=== PATIENT | male | born 1935 | race Caucasian/White ===

== ENCOUNTER 2019-11-28 09:35 | Emergency (ER) | payer MEDICARE, BC, SELFPAY ==
[2019-11-28 09:43] VITALS: BP 155/81; PULSE 80; RESP 18; TEMP 36.6; O2SAT 97; BMI 30.7
--- NOTE | 2019-11-28 09:54 | XR_ITS ---
PROCEDURE: XR HIP RT 2-3V W/PELVIS CLINICAL INDICATION: fall, pain Posttraumatic pain COMPARISON: No exams were available for comparison FINDINGS: No acute fracture or dislocation. Minimal osteoarthritic changes. IMPRESSION: No acute findings. Dictated by: Flo Herrera MD 11/28/2019 11:37 Electronically signed by Flo Herrera MD in [facility] 11/28/2019 11:37
--- NOTE | 2019-11-28 09:54 | CT_ITS ---
PROCEDURE: CT LUMBAR SPINE WO CON CLINICAL HISTORY: fall Low back pain following injury COMPARISON: No exams were available for comparison TECHNIQUE: Axial images obtained with sagittal and coronal reformats. All CT scans at the facility use one or more dose reduction, viz: automated exposure control, ma/kV adjustment per patient size (including targeted exams where dose is matched to indication, i.e. head), or iterative reconstruction technique. FINDINGS: There is generalized osteopenia. There is normal alignment. There is mild wedging of L2 centrally and anteriorly with loss of height anteriorly of approximately 30 percent. This may be old. No prevertebral soft tissue swelling is evident. No retropulsion. Mild degenerative disc disease noted at L1-L2 and L2-L3. Minimal bulging disc at L3-L4. 3 mm anterolisthesis of L4 on L5 with bulging disc along with facet and ligamentum hypertrophy with canal stenosis, bilateral lateral recess narrowing, and bilateral foraminal narrowing. There is some heterotopic ossification posterior to the facets at this level. Bulging disc is present at L5-S1 with facet hypertrophic change. No definite acute fracture. 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 Please see above for detailed description at each level. Wedge compression changes of L2 which appear chronic. This could be confirmed with MRI if clinically warranted. No definite acute fracture or dislocation. Dictated by: Flo Herrera MD 11/28/2019 11:02 Electronically signed by Flo Herrera MD in [facility] 11/28/2019 11:02
--- NOTE | 2019-11-28 09:55 | PC.NURSE ---
notified rad of orders on pt
--- NOTE | 2019-11-28 10:05 | PC.NURSE ---
pt sitting in wheel chair waiting on rad to come get them
[2019-11-28 10:07] VITALS: BP 137/67; PULSE 76; RESP 18; O2SAT 97
--- NOTE | 2019-11-28 10:28 | PC.NURSE ---
pt to xray
--- NOTE | 2019-11-28 10:32 | PC.NURSE ---
pt gone to rad
--- NOTE | 2019-11-28 10:54 | PC.NURSE ---
pt back from rad
[2019-11-28 10:58] VITALS: BP 192/78; PULSE 66; RESP 18; O2SAT 98
--- NOTE | 2019-11-28 11:01 | CT_ITS ---
PROCEDURE: CT HIP RT WO CON CLINICAL HISTORY: fall Right hip pain following injury COMPARISON: XR HIP RT 2-3V W/PELVIS from 11/28/2019 TECHNIQUE: Axial images obtained with sagittal and coronal reformats. All CT scans at the facility use one or more dose reduction, viz: automated exposure control, ma/kV adjustment per patient size (including targeted exams where dose is matched to indication, i.e. head), or iterative reconstruction technique. FINDINGS: No fracture or dislocation. There are minimal osteoarthritic changes. No hematoma apparent. There is some minimal soft tissue calcification at the ischial tuberosity and along the proximal aspect of the greater trochanter anteriorly. No lytic or blastic change. IMPRESSION: No acute fracture. Mild degenerative changes Dictated by: Flo Herrera MD 11/28/2019 11:32 Electronically signed by Flo Herrera MD in [facility] 11/28/2019 11:32
--- NOTE | 2019-11-28 11:30 | PC.NURSE ---
pt back from rad
[2019-11-28 11:35] VITALS: BP 140/64; PULSE 69; RESP 18; O2SAT 98
--- NOTE | 2019-11-28 12:07 | HMH.EDGENADL ---
ED Disposition Clinical Impression: Multiple contusions Disposition: Home, Self-Care Condition on Discharge: Good Instructions: DI for Acute Pain -- Adult Referrals: Staci Gonsales [Primary Care Provider] - - Critical Care Critical Care Time: No Attestation: On 11/28/19, the high probability of a clinically significant, sudden or life threatening deterioration of the following system(s) required my full and direct attention, intervention and personal management. The time I documented below is in addition to time spent performing reported procedures but includes the following listed in this critical care notation. Medical Decision Making - Medical Records Medical records reviewed: Yes: I reviewed the patient's medical records. - Albert Inquiry Pt receiving controlled substance: No Vital Signs: 11/28/19 09:43 11/28/19 10:07 11/28/19 10:58 Temperature 97.9 F Temperature Source Oral Pulse Rate [Right Radial] 80 76 66 Respiratory Rate 18 18 18 Blood Pressure [Right Arm] 155/81 H 137/67 192/78 H Blood Pressure Mean [Right Arm] 105 90 116 Blood Pressure Source [Right Arm] Automatic Cuff Automatic Cuff Automatic Cuff Blood Pressure Position [Right Arm] Sitting Supine Supine 02 Sat by Pulse Oximetry 97 97 98 Oxygen Delivery Method Room Air Nasal Cannula Room Air Oxygen Flow Rate (LPM) 3 11/28/19 11:35 Temperature Temperature Source Pulse Rate [Right Radial] 69 Respiratory Rate 18 Blood Pressure [Right Arm] 140/64 Blood Pressure Mean [Right Arm] 89 Blood Pressure Source [Right Arm] Manual Cuff/ Doppler Blood Pressure Position [Right Arm] Supine 02 Sat by Pulse Oximetry 98 Oxygen Delivery Method Room Air Oxygen Flow Rate (LPM) - Lab Data Lab results reviewed: Yes: I reviewed the patient's lab results. Orders (Tests/Meds): ED MEDICATIONS Discontinued Medications Generic Name Dose Route Start Last Admin Trade Name Freq PRN Reason Stop Dose Admin Ketorolac Tromethamine 60 mg 11/28/19 11:00 11/28/19 11:03 Toradol 60mg/2ml Vial IM 11/28/19 11:01 60 mg ONCE ONE Administration - Radiology Data #1 Image(s): Hip Preliminary Findings: Normal/NAD - CT Data CT Scan: L-Spine Time Received: 11:20 Preliminary Findings: Normal/NAD General Adult HPI - General Chief complaint: PAIN Stated complaint: AO [id number] Fell off bed, r hip pain Time Seen by Provider: 11/28/19 11:00 Mode of Arrival: Wheelchair Source of Information: Patient Limitations: No Limitations Description of Symptoms (Recalled from ER Triage Doc. by RN): Pt c/o R hip pain and R lower back pain. Pt reports a fall on November 22. Pt reports he was trying to get out of bed when he fell. Pt reports pain was getting better until this morning, states having difficulty walking today. - History of Present Illness HPI narrative: 84-year-old gentleman presents the emergency department after falling out of bed 2 days ago. He states that he was laying in bed and just rolled over and ran out of bed and landed on the floor on his right side. He is complaining about right hip pain and lower back pain. He states right now the pain is a 5 out of 10 and classifies pain is sharp. He states that alleviating factors include rest and exacerbating factors include movement. Patient denies any bowel or bladder incontinence. Patient denies any recent fever shakes or chills. HPIPatient denies any recent cough or shortness of breath, patient denies any sore throat or headache, patient denies any loss of taste or smell, patient denies any malaise or fatigue, patient denies any abdominal pain nausea vomiting or diarrhea. - Related Data Home Medications Medication Instructions Recorded Confirmed lisinopril 10 mg tablet 10 mg PO DAILY 02/18/19 11/28/19 metformin 500 mg tablet 1,000 mg PO DAILY 02/18/19 11/28/19 Insulin NPH Hum/Reg Insulin Hm 20 units SQ HS 11/28/19 11/28/19 [Novolin 70-30 100 Unit/ml Vial] I
[2019-11-28 12:23] VITALS: BP 133/70; PULSE 68; RESP 18; TEMP 36.6; O2SAT 98
== END 2019-11-28 12:24 | disposition home or self-care (01) ==
PROVIDERS: Emergency Provider Family Medicine; PCP Family Medicine
DX: T07.XXXA Unspecified multiple injuries, initial encounter (principal); M25.551 Pain in right hip; M54.5 Low back pain; W06.XXXA Fall from bed, initial encounter; Y92.013 Bedroom of single-family (private) house as the place of occurrence of the external cause; I10 Essential (primary) hypertension; E11.9 Type 2 diabetes mellitus without complications; Z79.84 Long term (current) use of oral hypoglycemic drugs; Z79.4 Long term (current) use of insulin; Z79.899 Other long term (current) drug therapy
CPT/HCPCS: 72131; 73502; 73700; 96372; 99283

== ENCOUNTER 2023-07-29 13:14 | Outpatient (CLI) | payer MEDICARE, BC, SELFPAY ==
[2023-07-29 13:22] LABS: Basophils % 0.6 % (0.1-2.0); Eosinophils # 0.1 K/mm3 (0.0-0.4); Eosinophils % 0.9 % (0.1-12.0); Hematocrit 42.1 % (42.0-52.0); Hemoglobin 13.3 g/dL (14.1-18.0); Lymphocytes # 1.3 K/mm3 (0.7-4.5); Lymphocytes % 16.8 % (10-50); Mean Corpuscular HGB Conc 31.5 g/dL (31.8-35.4); Mean Corpuscular Hemoglobin 31.3 pg (27.0-31.2); Mean Corpuscular Volume 99.2 fl (80-94); Mean Platelet Volume 10.9 fl (7.4-10.4); Monocytes # 0.4 K/mm3 (0.1-1.0); Monocytes % 5.8 % (1.7-9.3); Neutrophils # 5.7 K/mm3 (1.8-7.8); Platelet Count 208 K/mm3 (142-424); Red Blood Count 4.24 M/mm3 (4.60-6.20); Red Cell Distribution Width 13.1 % (11.5-17.5); White Blood Count 7.5 K/mm3 (4.8-10.8)
[2023-07-29 13:31] LABS: Alanine Aminotransferase 15 U/L (12-78); Albumin Level 4.3 g/dl (3.5-5.0); Albumin/Globulin Ratio 1.9 (1.1-1.8); Alkaline Phosphatase 59 U/L (38-126); Anion Gap 13.5 mEq/L (5-15); Aspartate Amino Transferase 21 U/L (17-59); Bilirubin,Total 0.6 mg/dl (0.2-1.3); Blood Urea Nitrogen 23 mg/dl (9-20); Calcium 11.2 mg/dl (8.4-10.2); Carbon Dioxide 26 mmol/L (22.0-30.0); Chloride 106 mmol/L (98-107); Chol/HDL Ratio 4.5 (1-3.5); Cholesterol 148 mg/dl (140-200); Estimated Glomerular Filt Rate 52 ml/min (>60); GFR (African American) 63 ML/MIN (>60); Globulin 2.3 g/dL (1.3-3.2); Glucose 142 mg/dl (74-100); HDL Cholesterol 33 mg/dl (40-60); Potassium 5.5 mmoL/L (3.5-5.1); Sodium 140 mmol/L (136-145); Total Protein,Serum 6.6 g/dl (6.3-8.2); Triglycerides 113 mg/dl (30-150); VLDL Cholesterol 23 mg/dL (0-40)
[2023-07-29 13:43] LABS: Direct LDL Cholesterol 85.38 mg/dL (100-129)
[2023-07-29 13:46] LABS: Free T4 (Free Thyroxine) 0.92 ng/dl (0.78-2.19)
[2023-07-29 14:03] LABS: Prostate Specific Ag Screen 0.8 ng/ml (0.0-4.0); Thyroid Stimulating Hormone 3.07 uIU/mL (0.465-4.68)
[2023-07-29 14:22] LABS: Vitamin B12 272 pg/mL (239-931)
[2023-07-29 14:55] LABS: Hemoglobin A1C 8.4 % (4.0-6.0)
[2023-07-29 16:16] LABS: 25-OH Vitamin D, Total 41.6 ng/mL (30-100)
== END 2023-07-29 23:59 ==
LOC: LAB.DROPOF 13:14
PROVIDERS: PCP Nurse Practitioner Family; Visit Provider Nurse Practitioner Family
DX: R53.83 Other fatigue (principal); I10 Essential (primary) hypertension; E55.9 Vitamin D deficiency, unspecified; N40.0 Benign prostatic hyperplasia without lower urinary tract symptoms; Z12.5 Encounter for screening for malignant neoplasm of prostate; E11.9 Type 2 diabetes mellitus without complications; Z79.4 Long term (current) use of insulin; Z79.899 Other long term (current) drug therapy
CPT/HCPCS: 80053; 80061; 82306; 82607; 83036; 84439; 84443; 85025; G0103

== ENCOUNTER 2023-07-30 21:38 | Outpatient (CLI) | payer MEDICARE, BC, SELFPAY ==
[2023-07-30 21:46] LABS: Microscopic, Urine URINE MICROSCOPIC (MICROSCOPIC)
[2023-07-30 21:54] LABS: Appearance,Urine CLEAR (Clear); Bilirubin,Urine Negative (Negative); Blood, Urine Negative (Negative); Color,Urine YELLOW (Yellow); Glucose,Urine (UA) Negative (Negative); Ketones,Urine Negative (Negative); Leukocyte Esterase,Urine Negative (Negative); Nitrate,Urine Negative (Negative); Protein,Urine Negative (Negative); Urobilinogen,Urine 0.2 EU/dl (0.2)
== END 2023-07-30 23:59 ==
PROVIDERS: PCP Nurse Practitioner Family; Visit Provider Nurse Practitioner Family
DX: N40.0 Benign prostatic hyperplasia without lower urinary tract symptoms (principal); I10 Essential (primary) hypertension; B96.89 Other specified bacterial agents as the cause of diseases classified elsewhere; Z79.899 Other long term (current) drug therapy
CPT/HCPCS: 81001; 87086

== ENCOUNTER 2023-08-19 11:40 | Outpatient (POV) | payer MEDICARE, BC, SELFPAY | END 2023-08-19 23:59 | disposition home or self-care (01) | LOC: SC 11:40 | PROVIDERS: PCP Nurse Practitioner Family; Visit Provider Dermatology | DX: Z00.00 Encounter for general adult medical examination without abnormal findings (principal) ==

== ENCOUNTER 2023-10-30 18:00 | Outpatient (CLI) | payer MEDICARE, BC, SELFPAY ==
[2023-10-30 12:51] LABS: Microscopic, Urine URINE MICROSCOPIC (MICROSCOPIC)
[2023-10-30 13:55] LABS: Anion Gap 17.1 mEq/L (5-15); Blood Urea Nitrogen 26 mg/dl (9-20); Calcium 10.6 mg/dl (8.4-10.2); Carbon Dioxide 25 mmol/L (22.0-30.0); Chloride 106 mmol/L (98-107); Estimated Glomerular Filt Rate 44 ml/min (>60); GFR (African American) 54 ML/MIN (>60); Glucose 84 mg/dl (74-100); Potassium 5.1 mmoL/L (3.5-5.1); Sodium 143 mmol/L (136-145)
[2023-10-30 14:37] LABS: Appearance,Urine CLEAR (Clear); Bilirubin,Urine Negative (Negative); Blood, Urine Negative (Negative); Color,Urine YELLOW (Yellow); Glucose,Urine (UA) Negative (Negative); Ketones,Urine Negative (Negative); Leukocyte Esterase,Urine Negative (Negative); Nitrate,Urine Negative (Negative); Protein,Urine Negative (Negative); Urobilinogen,Urine 0.2 EU/dl (0.2)
[2023-10-30 16:16] LABS: Bacteria,Urine Trace /lpf; Squamous Epithelial Cell,Urine Occasional #/hpf (0-5); WBC,Urine Occasional #/hpf (0-3)
== END 2023-10-30 23:59 | disposition home or self-care (01) ==
LOC: LAB.DROPOF 10-31 07:25
PROVIDERS: PCP Nurse Practitioner Family; Visit Provider Nurse Practitioner Family
DX: E11.42 Type 2 diabetes mellitus with diabetic polyneuropathy (principal); Z79.4 Long term (current) use of insulin; Z79.84 Long term (current) use of oral hypoglycemic drugs; N40.0 Benign prostatic hyperplasia without lower urinary tract symptoms; R39.9 Unspecified symptoms and signs involving the genitourinary system
CPT/HCPCS: 80048; 81001; 83036; 87086

== ENCOUNTER 2024-01-29 09:49 | Outpatient (CLI) | payer MEDICARE, BC, SELFPAY ==
[2024-01-29 12:50] LABS: Hemoglobin A1C 7.3 % (4.0-6.0)
[2024-01-29 13:01] LABS: Anion Gap 8.9 mEq/L (5-15); Blood Urea Nitrogen 26 mg/dl (9-20); Calcium 10.3 mg/dl (8.4-10.2); Carbon Dioxide 27 mmol/L (22.0-30.0); Chloride 107 mmol/L (98-107); Estimated Glomerular Filt Rate 48 ml/min (>60); GFR (African American) 58 ML/MIN (>60); Glucose 90 mg/dl (74-100); Potassium 4.9 mmoL/L (3.5-5.1); Sodium 138 mmol/L (136-145)
[2024-01-29 17:17] LABS: Microscopic, Urine URINE MICROSCOPIC (MICROSCOPIC)
[2024-01-29 18:12] LABS: Creatinine,Urine Random 44 mg/dL (Not Estab.)
[2024-01-29 18:16] LABS: Microalbumin < 6.000 mg/L (0-16.7)
[2024-01-29 18:28] LABS: Appearance,Urine CLEAR (Clear); Bilirubin,Urine Negative (Negative); Blood, Urine Negative (Negative); Color,Urine YELLOW (Yellow); Glucose,Urine (UA) Negative (Negative); Ketones,Urine Negative (Negative); Leukocyte Esterase,Urine Negative (Negative); Nitrate,Urine Negative (Negative); Protein,Urine Negative (Negative); Specific Gravity, Urine <= 1.005 (1.005-1.030); Urobilinogen,Urine 0.2 EU/dl (0.2)
[2024-01-29 19:00] LABS: Bacteria,Urine Trace /lpf
== END 2024-01-29 23:59 | disposition home or self-care (01) ==
LOC: LAB.DROPOF 01-30 09:49
PROVIDERS: PCP Nurse Practitioner Family; Visit Provider Nurse Practitioner Family
DX: E11.42 Type 2 diabetes mellitus with diabetic polyneuropathy; Z79.4 Long term (current) use of insulin; I10 Essential (primary) hypertension; R39.9 Unspecified symptoms and signs involving the genitourinary system; N40.0 Benign prostatic hyperplasia without lower urinary tract symptoms
CPT/HCPCS: 36415; 80048; 81001; 82043; 82570; 83036; 84156; 87086; 87186

== ENCOUNTER 2024-04-29 12:59 | Outpatient (CLI) | payer MEDICARE, BC, SELFPAY ==
[2024-04-29 12:34] LABS: Microscopic, Urine URINE MICROSCOPIC (MICROSCOPIC)
[2024-04-29 13:19] LABS: Basophils # 0.1 K/mm3 (0-0.2); Basophils % 0.7 % (0.1-2.0); Eosinophils # 0.1 K/mm3 (0.0-0.4); Eosinophils % 1.5 % (0.1-12.0); Hematocrit 40.3 % (42.0-52.0); Lymphocytes # 1.4 K/mm3 (0.7-4.5); Lymphocytes % 17.9 % (10-50); Mean Corpuscular HGB Conc 32.4 g/dL (31.8-35.4); Mean Corpuscular Hemoglobin 31.7 pg (27.0-31.2); Mean Corpuscular Volume 97.9 fl (80-94); Mean Platelet Volume 11.2 fl (7.4-10.4); Monocytes # 0.5 K/mm3 (0.1-1.0); Monocytes % 6.2 % (1.7-9.3); Neutrophils # 5.8 K/mm3 (1.8-7.8); Neutrophils % 73.7 % (37.0-80.0); Platelet Count 191 K/mm3 (142-424); Red Blood Count 4.12 M/mm3 (4.60-6.20); White Blood Count 7.8 K/mm3 (4.8-10.8)
[2024-04-29 13:36] LABS: Anion Gap 14.9 mEq/L (5-15); Blood Urea Nitrogen 22 mg/dl (9-20); Calcium 10.2 mg/dl (8.4-10.2); Carbon Dioxide 23 mmol/L (22.0-30.0); Chloride 108 mmol/L (98-107); Chol/HDL Ratio 4.1 (1-3.5); Cholesterol 132 mg/dl (140-200); Estimated Glomerular Filt Rate 52 ml/min (>60); GFR (African American) 63 ML/MIN (>60); Glucose 105 mg/dl (74-100); HDL Cholesterol 32 mg/dl (40-60); Magnesium 1.5 mg/dl (1.6-2.3); Phosphorous 3.2 mg/dl (2.5-4.5); Potassium 4.9 mmoL/L (3.5-5.1); Sodium 141 mmol/L (136-145); Triglycerides 186 mg/dl (30-150); VLDL Cholesterol 37 mg/dL (0-40)
[2024-04-29 13:46] LABS: Direct LDL Cholesterol 67.49 mg/dL (100-129)
[2024-04-29 14:21] LABS: Appearance,Urine CLEAR (Clear); Bilirubin,Urine Negative (Negative); Blood, Urine Negative (Negative); Color,Urine YELLOW (Yellow); Glucose,Urine (UA) Negative (Negative); Ketones,Urine Negative (Negative); Leukocyte Esterase,Urine Negative (Negative); Nitrate,Urine Negative (Negative); Protein,Urine Negative (Negative); Specific Gravity, Urine <= 1.005 (1.005-1.030); Urobilinogen,Urine 0.2 EU/dl (0.2)
[2024-04-29 14:24] LABS: Creatinine,Urine Random 39 mg/dL (Not Estab.)
[2024-04-29 14:27] LABS: Microalbumin < 6.000 mg/L (0-16.7)
[2024-04-29 14:41] LABS: Vitamin B12 228 pg/mL (239-931)
[2024-04-29 14:47] LABS: Folate 9.32 ng/mL
[2024-04-29 14:55] LABS: Iron 107 ug/dL (49-181)
[2024-04-29 15:05] LABS: Total Iron Binding Capacity 356 ug/dL (261-462)
[2024-04-29 15:31] LABS: Ferritin 38.5 ng/ml (17.9-464)
[2024-04-29 16:08] LABS: Bacteria,Urine Trace /lpf
[2024-04-29 18:24] LABS: Hemoglobin A1C 7.3 % (4.0-6.0)
== END 2024-04-29 23:59 | disposition home or self-care (01) ==
LOC: LAB.DROPOF 12:59
PROVIDERS: PCP Nurse Practitioner Family; Visit Provider Nurse Practitioner Family
DX: E11.42 Type 2 diabetes mellitus with diabetic polyneuropathy (principal); Z79.4 Long term (current) use of insulin; G57.93 Unspecified mononeuropathy of bilateral lower limbs; I10 Essential (primary) hypertension; N39.0 Urinary tract infection, site not specified; B95.2 Enterococcus as the cause of diseases classified elsewhere
CPT/HCPCS: 80048; 80061; 81001; 82043; 82570; 82607; 82728; 82746; 83036; 83540; 83550; 83735; 84100; 84156; 85025; 87086; 87088; 87186

== ENCOUNTER 2024-08-26 09:16 | Outpatient (CLI) | payer MEDICARE, BC, SELFPAY ==
[2024-08-26 13:05] LABS: Microscopic, Urine URINE MICROSCOPIC (MICROSCOPIC)
[2024-08-26 13:32] LABS: Basophils % 0.5 % (0.1-2.0); Eosinophils # 0.1 K/mm3 (0.0-0.4); Eosinophils % 1.3 % (0.1-12.0); Hematocrit 41.7 % (42.0-52.0); Hemoglobin 13.6 g/dL (14.1-18.0); Lymphocytes % 16.2 % (10-50); Mean Corpuscular HGB Conc 32.6 g/dL (31.8-35.4); Mean Corpuscular Hemoglobin 30.2 pg (27.0-31.2); Mean Corpuscular Volume 92.5 fl (80-94); Mean Platelet Volume 12.5 fl (7.4-10.4); Monocytes # 0.7 K/mm3 (0.1-1.0); Monocytes % 11.9 % (1.7-9.3); Neutrophils # 4.2 K/mm3 (1.8-7.8); Neutrophils % 69.8 % (37.0-80.0); Platelet Count 251 K/mm3 (142-424); Red Blood Count 4.51 M/mm3 (4.60-6.20); Red Cell Distribution Width 12.2 % (11.5-17.5)
[2024-08-26 13:39] LABS: Appearance,Urine CLEAR (Clear); Bilirubin,Urine Negative (Negative); Blood, Urine Negative (Negative); Color,Urine YELLOW (Yellow); Creatinine,Urine Random 57 mg/dL (Not Estab.); Glucose,Urine (UA) 1+ (Negative); Ketones,Urine Negative (Negative); Leukocyte Esterase,Urine Negative (Negative); Nitrate,Urine Negative (Negative); PH,Urine 5.5 (5.0-8.5); Protein,Urine Negative (Negative); Specific Gravity, Urine 1.015 (1.005-1.030); Urobilinogen,Urine 0.2 EU/dl (0.2)
[2024-08-26 13:48] LABS: Anion Gap 16.1 mEq/L (5-15); Blood Urea Nitrogen 37 mg/dl (9-20); Calcium 10.6 mg/dl (8.4-10.2); Carbon Dioxide 23 mmol/L (22.0-30.0); Chloride 99 mmol/L (98-107); Estimated Glomerular Filt Rate 44 ml/min (>60); GFR (African American) 54 ML/MIN (>60); Glucose 223 mg/dl (74-100); Magnesium 1.6 mg/dl (1.6-2.3); Potassium 5.1 mmoL/L (3.5-5.1); Sodium 133 mmol/L (136-145)
[2024-08-26 13:49] LABS: Microalbumin < 6.000 mg/L (0-16.7)
[2024-08-26 14:00] LABS: Hemoglobin A1C 8.3 % (4.0-6.0)
[2024-08-26 14:22] LABS: Bacteria,Urine Trace /lpf; Prostate Specific Ag Screen 0.7 ng/ml (0.0-4.0); Squamous Epithelial Cell,Urine Occasional #/hpf (0-5)
[2024-08-26 14:39] LABS: Vitamin B12 1000 pg/mL (239-931)
== END 2024-08-26 23:59 | disposition home or self-care (01) ==
LOC: LAB.DROPOF 08-27 10:14
PROVIDERS: PCP Nurse Practitioner Family; Visit Provider Nurse Practitioner Family
DX: E11.21 Type 2 diabetes mellitus with diabetic nephropathy (principal); Z79.4 Long term (current) use of insulin; Z12.5 Encounter for screening for malignant neoplasm of prostate; N40.0 Benign prostatic hyperplasia without lower urinary tract symptoms; R39.9 Unspecified symptoms and signs involving the genitourinary system; E83.42 Hypomagnesemia; D51.9 Vitamin B12 deficiency anemia, unspecified; I10 Essential (primary) hypertension
CPT/HCPCS: 80048; 81001; 82043; 82570; 82607; 83036; 83735; 85025; 87086; G0103

== ENCOUNTER 2024-11-18 08:57 | Outpatient (CLI) | payer MEDICARE, BC, SELFPAY ==
[2024-11-18 15:27] LABS: Microscopic, Urine URINE MICROSCOPIC (MICROSCOPIC)
[2024-11-18 15:54] LABS: Appearance,Urine CLEAR (Clear); Bilirubin,Urine Negative (Negative); Blood, Urine Negative (Negative); Color,Urine YELLOW (Yellow); Glucose,Urine (UA) TRACE (Negative); Ketones,Urine Negative (Negative); Leukocyte Esterase,Urine Negative (Negative); Nitrate,Urine Negative (Negative); Protein,Urine Negative (Negative); Urobilinogen,Urine 0.2 EU/dl (0.2)
[2024-11-18 16:07] LABS: Anion Gap 14.2 mEq/L (5-15); Blood Urea Nitrogen 30 mg/dl (9-20); Calcium 11.1 mg/dl (8.4-10.2); Carbon Dioxide 25 mmol/L (22.0-30.0); Chloride 104 mmol/L (98-107); Chol/HDL Ratio 3.7 (1-3.5); Cholesterol 119 mg/dl (140-200); Estimated Glomerular Filt Rate 52 ml/min (>60); GFR (African American) 63 ML/MIN (>60); Glucose 104 mg/dl (74-100); HDL Cholesterol 32 mg/dl (40-60); Potassium 5.2 mmoL/L (3.5-5.1); Sodium 138 mmol/L (136-145); Triglycerides 143 mg/dl (30-150); VLDL Cholesterol 29 mg/dL (0-40)
[2024-11-18 16:16] LABS: Creatinine,Urine Random 41 mg/dL (Not Estab.); Microalbumin < 6.000 mg/L (0-16.7)
[2024-11-18 16:18] LABS: Direct LDL Cholesterol 52.21 mg/dL (100-129)
[2024-11-18 18:13] LABS: Intact Parathyroid Hormone 97.2 pg/mL (7.5-53.5)
--- OUTSIDE RECORDS SUMMARY | 2024-11-19 10:22 | XMS_ITS | Clinical Summary ---
Author Organization Healthcare Address [address] [place] [address] Care Team Providers Care Sign Erector Name Role Phone Staci Bruce MD Primary Care Provider [phone] Allergies No known active allergies Medications insulin NPH-insulin regular (INSULIN NPH ISOPHANE & REGULAR HUMAN INJ) (70-30) 100 UNIT/ML SC injection vialIndications:T ype 2 diabetes mellitus with diabetic polyneuropathy, with long-term current use of insulin (CMS/HCC) Inject 0.25 mL (25 Units) under the skin 2 (two) times a day before meals. 40 mL 3 3 Active lisinopril 10 MG tabletIndications :Primary hypertension Take 1 tablet (10 mg) by mouth 1 (one) time each day. For blood pressure 90 tablet 3 3 Active metFORMIN (Glucophage) 1000 MG tabletIndications :Type 2 diabetes mellitus with diabetic polyneuropathy, with long-term current use of insulin (CMS/HCC) Take 1 tablet (1,000 mg) by mouth every 12 (twelve) hours. 180 tablet 3 3 Active simvastatin (Zocor) 20 MG tabletIndications :Type 2 diabetes mellitus with diabetic polyneuropathy, with long-term current use of insulin (CMS/HCC) Take 1 tablet (20 mg) by mouth every night. 90 tablet 3 3 Active tamsulosin (Flomax) 0.4 MG 24 hr capsuleIndication s:Benign prostatic hyperplasia with urinary frequency Take 1 capsule (0.4 mg) by mouth every night. 90 capsule 3 3 Active Active Problems Problem Noted Date Diagnosed Date Actinic keratoses 03/12/2018 Primary hyperparathyroidism 07/16/2017 Falls 04/25/2017 BPH (benign prostatic hyperplasia) 03/08/2015 Diabetes mellitus with diabetic polyneuropathy 1 Hyperlipemia 03/08/2015 High blood pressure 08/20/2014 Peripheral vascular disease 08/20/2014 Social History Tobacco Use Types Packs/Day Years Used Date Smoking Tobacco: Former Cigarettes 1 16 1 962 - 1978 Smokeless Tobacco: Never Alcohol Use Standard Drinks/Week Comments Yes 0 (1 standard drink = 0.6 oz pur e alcohol) PHQ-2 Answer Date Recorded Patient Health Questionnaire-2 Score 0 11/07/2022 PHQ-2A Answer Date Recorded Patient Health Questionnaire-2 Score 0 11/07/2022 Sex and Gender Information Value Date Recorded Sex Assigned at Not on file Legal Sex Male 6:19 PM EDT Gender Identity Not on file Sexual Orientation Not on file Last Filed Vital Signs Vital Sign Reading Time Taken Comments Blood Pressure 126/70 11/07/2022 9:23 AM EDT Pulse 89 11/07/2022 9:23 AM EDT Temperature 36.8 C (98.2 F) 08/21/2020 11:11 AM EDT Respiratory Rate 16 08/21/2020 11:1 1 AM EDT Oxygen Saturation 97% 11/07/2022 9:23 AM EDT Inhaled Oxygen Concentration - - Weight 86.1 kg (189 lb 13.1 oz) 023 9:23 AM EDT Height 167.6 cm (5' 6 ) 11/07/2022 9:23 AM EDT Body Mass Index 30.64 11/07/2022 9:23 AM EDT Plan of Treatment Health Maintenance Due Date Last Done Comments [facility] Annual Wellness (AWV) 1935 [facility]-/Child/Adol SDOH Screenings 1935 [id number] Vaccine (#1) 1942 Diabetes: Dental Exam 1947 [facility]- SDOH Screenings 1955 [facility]-Adult SDOH Screenings 1955 [facility]-DTaP,Tdap,and Td Vaccines (1 - Tdap) 1956 [facility]-Pneumococcal Vaccine: 50+ Years (1 of 2 - PCV) 1956 [facility]-Zoster Vaccines (1 of 2) 1956 [facility]-RSV Vaccine: 60+ Years or (1 - 1-dose 75+ series) 2012 [facility]-Diabetes: Hemoglobin A1C 02/06/2023 11/07/2022, 10/10/2021, 08/21/2020, Additional history exists [facility]-Depression Screening 11/08/2023 11/07/2022 [facility]-Influenza Vaccine (Season Ended) 2025 [facility]-Obesity Intervention Completed 023, 11/07/2022, 11/07/2022, Additional history exists HPV Vaccines Aged Out No longer eligi ble based on patient's age to complete this topic [facility]-HIB Vaccines Aged Out No longer e ligible based on patient's age to complete this topic [facility]-Hepatitis A Vaccines Aged Out No longer eligible based on patient's age to complete this topic [facility]-IPV Vaccines Aged Out No longer e ligible based on patient's age to complete this topic [facility]-Rotavirus Vaccines Aged Out No lo nger eligible based on patient's age to complete this topic Procedures Procedure Name Priority Date/Time Associated Diagnosis Comments HEMOGLOBIN A1C Routine 11/07/2022 9:50 AM EDT Type 2 diabetes mellitus with diabetic polyneuropathy, with long-term current use of insulin ([facility]) Annual physical exam from Last 3 Months or Most Recently Relevant to Health Maintenance Results * (ABNORMAL) Hemoglobin A1c (11/07/2022 9:50 AM EDT) Hemoglobin A1c 9.2(H) <5.7 % 11/07/2022 2:34 PM EDT [facility] Blood Venous blood specimen / Unknown Venipuncture / Unknown 11/07/2022 9:50 AM EDT 11/07/2022 9:50 AM EDT Narrative [facility] - 11/07/2022 2:34 PM EDT HA1C Interpretive Data: Diagnosis of Diabetes: Diabetic > or = 6.5% Pre-diabetic 5.7 to 6.4% Non-diabetic < or = 5.6% Glycemic Targets for Type I and Type II Diabetics: Non- Adults <7.0% Adults <6.0% Children and Adolescents <7.5% Source: [place] [employer]. Standards of medical care in diabetes,2017. Diabetes Care.2017:40 (suppl 1):S1-S135. HbA1c assay performed by an ion-exchange chromatography method that is certified traceable to the DCCT. us Angelina Collins SPECIAL INSPECTOR LAB BLOOD ORDERABLES Final Result [facility] [address] [place] [address] from Last 3 Months or Most Recently Relevant to Health Maintenance [place] [address] [facility] Care Teams Sign Erector Relationship Specialty Start Date End Date Staci Bruce MD [address] [place] [phone] PCP - General 10/06/20
--- OUTSIDE RECORDS SUMMARY | 2024-11-19 10:22 | XMS_ITS | Clinical Summary ---
Author Organization [facility] Address [address] [place] [id number] Care Team Providers Care Project Finance Analyst Name Role Phone Unavailable Primary Care Provider Unavailabl e Source Comments This information has been disclosed to you from confidential records protectedfrom disclosure by state law. You shall make no further disclosure of thisinformation without the specific, written, and informed release of theindividual to whom it pertains, or as otherwise permitted by law. A generalauthorization for the release of medical or other information is not sufficientfor the purposes of therelease of HIV test results or diagnoses. [id number] Social History Tobacco Use Types Packs/Day Years Used Date Smoking Tobacco: Never Assessed Sex and Gender Information Value Date Recorded Sex Assigned at Not on file Legal Sex Male 4:01 PM EDT Gender Identity Not on file Sexual Orientation Not on file Plan of Treatment Not on file Insurance [place] A[place] [id number] MEDICARE A AND B Member Subscriber Plan / Payer (Ef fective 2002-Present) Name:Lyle Alcantar Relation to Subscriber:Self Name:Lyle Alcantar Payer ID:[id number] Group ID:Not on file Type:Medicare Address: [address] MEDICARE SUPPLEMENT Member Subscriber Plan / Payer (Ef fective 2016-Present) Name:Lyle Alcantar Relation to Subscriber:Self Name:Lyle Alcantar Payer ID:[id number] (NAIC) Group ID:[id number] Type:Not on file Address: [address] [place] [id number]
== END 2024-11-18 23:59 | disposition home or self-care (01) ==
LOC: LAB.DROPOF 11-19 10:21
PROVIDERS: PCP Nurse Practitioner Family; Visit Provider Nurse Practitioner Family
DX: E11.21 Type 2 diabetes mellitus with diabetic nephropathy (principal); N40.0 Benign prostatic hyperplasia without lower urinary tract symptoms; I10 Essential (primary) hypertension; E78.5 Hyperlipidemia, unspecified; E11.9 Type 2 diabetes mellitus without complications; E83.52 Hypercalcemia; Z79.4 Long term (current) use of insulin
CPT/HCPCS: 80048; 80061; 81001; 82043; 82306; 82570; 83036; 83970; 84100; 84156; 87086

== ENCOUNTER 2025-02-16 10:00 | Outpatient (CLI) | payer MEDICARE, BC, SELFPAY ==
--- OUTSIDE RECORDS SUMMARY | 2024-12-22 15:12 | XMS_ITS | Encounter Summary ---
Author Organization [facility] Address [address] [place] [address] Care Team Providers Care Pediatric Psychologist Name Role Phone Staci Bruce MD Primary Care Provider [phone] Reason for Referral * Imaging (Routine) - Closed Specialty Diagnoses / Procedures Referred By Diogenes asif Referred To Contact Radiology Diagnoses Hypercalcemia Hyperparathyroidism, unspecified (CMS/HCC) Procedures CT Soft Tissue Neck w and wo IV Contrast Mariajose Medel APRN [address] [address] [address] Phone: tel: fax: Referral ID Status Reason Start Date Expiration Date Visits Re quested Visits Authorized [id number] Closed 12/08/2024 06/09/2026 1 1 Reason for Visit * Imaging (Routine) - Closed Specialty Diagnoses / Procedures Referred By Diogenes asif Referred To Contact Radiology Diagnoses Hypercalcemia Hyperparathyroidism, unspecified (CMS/HCC) Procedures CT Soft Tissue Neck w and wo IV Contrast Mariajose Medel APRN [address] [place] [address] Phone: tel: fax: Referral ID Status Reason Start Date Expiration Date Visits Re quested Visits Authorized [id number] Closed 12/08/2024 06/09/2026 1 1 Encounter Details Date Type Department Care Team (Latest Contact Info) Description 12/22/2024 3:12 PM EDT - 12/22/2024 11:59 PM EDT Hospital Encounter [facility] [address] [place] [address] Hypercalcemia; Hyperparathyroidism , unspecified ([facility]/HCC) Discharge Disposition: Home or Self Care Social History Tobacco Use Types Packs/Day Years Used Date Smoking Tobacco: Former Cigarettes 1 16 1 2 - 1977 Smokeless Tobacco: Never Alcohol Use Standard Drinks/Week [...] on file Sexual Orientation Not on file documented as of this encounter Medications at Time of Discharge insulin NPH-insulin regular (INSULIN NPH ISOPHANE & REGULAR HUMAN INJ) (70-30) 100 UNIT/ML SC injection vialIndications:Ty pe 2 diabetes mellitus with diabetic polyneuropathy, with long-term current use of insulin Inject 0.25 mL (25 Units) under the skin 2 (two) times a day before meals. 40 mL 3 11/07/2022 lisinopril 10 MG tabletIndications: Primary hypertension Take 1 tablet (10 mg) by mouth 1 (one) time each day. For blood pressure 90 tablet 3 11/07/2022 metFORMIN (Glucophage) 1000 MG tabletIndications: Type 2 diabetes mellitus with diabetic polyneuropathy, with long-term current use of insulin Take 1 tablet (1,000 mg) by mouth every 12 (twelve) hours. 180 tablet 3 11/07/2022 simvastatin (Zocor) 20 MG tabletIndications: Type 2 diabetes mellitus with diabetic polyneuropathy, with long-term current use of insulin Take 1 tablet (20 mg) by mouth every night. 90 tablet 3 11/07/2022 tamsulosin (Flomax) 0.4 MG 24 hr capsuleIndications :Benign prostatic hyperplasia with urinary frequency Take 1 capsule (0.4 mg) by mouth every night. 90 capsule 3 11/07/2022 documented as of this encounter Miscellaneous Notes * Nancy Gandaraica L - 12/22/2024 3:18 PM EDT Images from the original note were not included. 1639 Caring for Yourself after Contrast Imaging If you had ORAL contrast: ? You can go back to your normal diet and activities as tolerated. ? Drink plenty of fluids, unless told otherwise. If you had IV contrast: ? You can go back to your normal diet and activities as tolerated. ? Drink plenty of fluids, unless told otherwise. ? Leave a bandage on the site for 30 minutes (where the IV was inserted or blood was drawn). If you had Intravesical (bladder) contrast: ? Return to normal diet and activity. What you need to know about delayed reaction to IV contrast What is IV Contrast? ? Contrast is a dye that is put into your body through an IV. ? It is used for imaging scans such as CT scans and MRIs. ? The contrast makes blood vessels, organs and other parts of your body show up better on the scan. What do I need to do after IV contrast? ? Drink lots of fluids. This will help flush the contrast out of your system. ? Drink 2-3 extra glasses or bottles of water within 4 hours of your scan. What is a contrast reaction? ? A contrast reaction is a bad side effect from the contrast dye. ? It is rare but it does happen. ? They can be mild - such as sneezing, itching, or hives. ? They can be severe - such as trouble breathing, throat swelling, and irregular heart beat. When do these reactions happen? ? They often happen right after the contrast is injected. ? Some happen hours after going home. Go to the nearest Emergency Department right away if you have any of these symptoms after you leavethe clinic or hospital. ? Sneezing ? Itching in your mouth, throat, eyes, ears, or skin ? Rash or hives ? Throwing up or stomach sickness ? High heart rate or ?racing? of your heart ? Feeling dizzy or woozy ? Feeling short of breath or like you can?t take a deep breath ? Feeling very anxious for no other reason It is very important that these reactions be treated. Tell the doctor or nurse that you are having a reaction to IV contrast dye. Do not ignore any sign of a reaction! All reactions must be assessed by a doctor. Call 911 if you are alone and your reaction is more than mild sneezing or itching. If you have a mild reaction, call to speak with a Radiologist, explain that you havehad a contrast reaction, as this needs to be added to your medical record. documented in this encounter Plan of Treatment Not on file documented as of this encounter Procedures Procedure Name Priority Date/Time Associated Diagnosis Comments CT SOFT TISSUE NECK W AND WO IV CONTRAST Routine 12/22/2024 3:50 PM EDT Hypercalcemia Hyperparathyroidism, unspecified (CMS/HCC) documented in this encounter Results * CT Soft Tissue Neck w and wo IV Contrast (12/22/2024 3:50 PM EDT) Anatomical Region Laterality Modality Neck Computed Tomogra phy Impressions 12/23/2024 2:03 PM EDT Nodular enhancing focus in right paratracheal brandon region measuring about 13 x 5.7 x 11 mm with apparent proximity/contiguity to the right thyroid lobe in the anterosuperior aspect of the nodule. Prominent adjacent vessel on this nodule, probably representing right inferior thyroid artery. This could represent parathyroid lesion with differential consideration of exophytic thyroid tissue/nodule. Another nodular enhancing focus along posterior aspect of left thyroid lobe extending to left paraesophageal region measuring about 13 x 7.5 x 15 mm. This could represent exophytic thyroid nodule/tissue or parathyroid lesion. No significant definite cervical adenopathy is present. If necessary findings may be further assessed with sestamibi SPECT/CT. CRITICAL RESULT: No. COMMUNICATION: Per this written report. Drafted by Musa Dooley MD on 12/23/2024 1:29 PM Final report signed by Musa Dooley MD on 12/23/2024 2:03 PM Narrative 12/23/2024 2:03 PM EDT CLINICAL INDICATION: 4D Parathyroid CT scan TECHNIQUE: Helical images were obtained through the neck, using 4D parathyroid protocol and reconstructed in the axial plane on bone and soft tissue algorithm at multiple slice thicknesses. Coronal and sagittal reformatted images were created. 60 mL of Omnipaque 300 were administered intravenously. Total DLP (Dose-Length Product): 877.70 mGy.cm. Please note: The reported value represents the total of one or more individual components during the CT acquisition on this date and at this time, and as such, the same value may appear in more than one CT report depending on the interpreting/reporting physicians. COMPARISON: NM parathyroid scan , January 23, 2017 FINDINGS: Diagnostic Quality: Artifacts related to intense venous contrast and other structures limiting evaluation of the thoracic Inlet/lower neck. Soft Tissues/Thyroid: There is somewhat suboptimal evaluation of the thyroid gland and adjacent areas T2 artifacts. There is a nodular enhancing focus in the right paratracheal brandon region measuring about 13 x 5.7 mm in the axial plane and 11 mm in coronal plane (series 5, image 49; series 7, image 14). There is apparent proximity to the posterior margin of the thyroid lobe along the anterosuperior aspect of this nodule and contiguity with direct tissue cannot be definitively excluded. This demonstrates somewhat low density compared the thyroid tissue in the noncontrast images and also in the venous phase images. There is a prominent vessel on this nodule, probably representing right inferior thyroid artery (series 8, image 45). This could represent parathyroid lesion with differential consideration of exophytic thyroid tissue/nodule. Another nodular enhancing focus along the posterior aspect of the left thyroid lobe extending to the left paraesophageal region measuring about 13 x 7.5 mm in axial dimensions and 15 mm in craniocaudal dimension (series 5, image 46; series 7, image 40). This demonstrates a iso to low density with respect to thyroid in the noncontrast images and demonstrates heterogeneous appearance with isodense as well as low density areas in the venous phase images. This could represent exophytic thyroid nodule/tissue or parathyroid lesion. It is unclear whether these above foci correspond to previously described foci in the nuclear medicine study. No other masses are present within the soft tissues of the neck. Lymph Nodes: No definite significant cervical adenopathy is present. Pharynx/Larynx: Suboptimal assessment of the larynx due to adducted position of the vocal folds in the contrast-enhanced images. No definite pharyngeal or laryngeal masses are present within the limitations. Oral Cavity: No large masses are present within the oral cavity within the limitations of the study. Parapharyngeal Space: No lesions are present within the parapharyngeal space. Salivary Glands: The parotid and submandibular glands demonstrate no definite focal lesions. Thyroid: No focal thyroid lesions are present, within the limitations of the study. Orbits/Paranasal Sinuses/Skull Base/Posterior Fossa: No orbital masses are present within the visualized portions of the orbits. The visualized paranasal sinuses are grossly clear. Within the skull base, there is no focal lesion or destructive process. Definite significant abnormality in the visualized intracranial portions Bones/Spine: There are multilevel degenerative changes of the spine, most pronounced at C4-C5, C5-C6 and C6-C7 levels, with at least moderate spinal canal narrowing. Probable severe neural foraminal narrowing right C4-C5 level. No bony destructive lesion is present. Thoracic Inlet and Lung Apices: Small calcified granuloma in the right lung. Other Findings: None. Procedure Note Musa Dooley MD - 12/23/2024 CLINICAL INDICATION: 4D Parathyroid CT scan TECHNIQUE: Helical images were obtained through the neck, using 4D parathyroidprotocol and reconstructed in the axial plane on bone and soft tissuealgorithm at multiple slice thicknesses. Coronal and sagittal reformattedimages were created. 60 mL of Omnipaque 300 were administeredintravenously. Total DLP (Dose-Length Product): 877.70 mGy.cm. Please note: The reportedvalue represents the total of one or more individual components during theCT acquisition on this date and at this time, and as such, the same valuemay appear in more than one CT report depending on theinterpreting/reporting physicians. COMPARISON: NM parathyroid scan , January 23, 2017 FINDINGS: Diagnostic Quality: Artifacts related to intense venous contrast and otherstructures limiting evaluation of the thoracic Inlet/lower neck. Soft Tissues/Thyroid: There is somewhat suboptimal evaluation of thethyroid gland and adjacent areas T2 artifacts. There is a nodularenhancing focus in the right paratracheal brandon region measuring about 13x 5.7 mm in the axial plane and 11 mm in coronal plane (series 5, image49; series 7, image 14). There is apparent proximity to the posteriormargin of the thyroid lobe along the anterosuperior aspect of this noduleand contiguity with direct tissue cannot be definitively excluded. Thisdemonstrates somewhat low density compared the thyroid tissue in thenoncontrast images and also in the venous phase images. There is aprominent vessel on this nodule, probably representing right inferiorthyroid artery (series 8, image 45). This could represent parathyroidlesion with differential consideration of exophytic thyroidtissue/nodule. Another nodular enhancing focus along the posterior aspect of the leftthyroid lobe extending to the left paraesophageal region measuring about13 x 7.5 mm in axial dimensions and 15 mm in craniocaudal dimension(series 5, image 46; series 7, image 40). This demonstrates a iso to lowdensity with respect to thyroid in the noncontrast images and demonstratesheterogeneous appearance with isodense as well as low density areas in thevenous phase images. This could represent exophytic thyroid nodule/tissueor parathyroid lesion. It is unclear whether these above foci correspond to previously describedfoci in the nuclear medicine study. No other masses are present within the soft tissues of the neck. Lymph Nodes: No definite significant cervical adenopathy is present. Pharynx/Larynx: Suboptimal assessment of the larynx due to adductedposition of the vocal folds in the contrast-enhanced images. No definitepharyngeal or laryngeal masses are present within the limitations. Oral Cavity: No large masses are present within the oral cavity within thelimitations of the study. Parapharyngeal Space: No lesions are present within the parapharyngealspace. Salivary Glands: The parotid and submandibular glands demonstrate nodefinite focal lesions. Thyroid: No focal thyroid lesions are present, within the limitations ofthe study. Orbits/Paranasal Sinuses/Skull Base/Posterior Fossa: No orbital masses arepresent within the visualized portions of the orbits. The visualizedparanasal sinuses are grossly clear. Within the skull base, there is nofocal lesion or destructive process. Definite significant abnormality inthe visualized intracranial portions Bones/Spine: There are multilevel degenerative changes of the spine, mostpronounced at C4-C5, C5-C6 and C6-C7 levels, with at least moderate spinalcanal narrowing. Probable severe neural foraminal narrowing right C4-N9voaen. No bony destructive lesion is present. Thoracic Inlet and Lung Apices: Small calcified granuloma in the rightlung. Other Findings: None. IMPRESSION: Nodular enhancing focus in right paratracheal brandon region measuring about13 x 5.7 x 11 mm with apparent proximity/contiguity to the right thyroidlobe in the anterosuperior aspect of the nodule. Prominent adjacent vesselon this nodule, probably representing right inferior thyroid artery. Thiscould represent parathyroid lesion with differential consideration ofexophytic thyroid tissue/nodule. Another nodular enhancing focus along posterior aspect of left thyroidlobe extending to left paraesophageal region measuring about 13 x 7.5 x 15mm. This could represent exophytic thyroid nodule/tissue or parathyroidlesion. No significant definite cervical adenopathy is present. If necessary findings may be further assessed with sestamibi SPECT/CT. CRITICAL RESULT: No. COMMUNICATION: Per this written report. Drafted by Musa Dooley MD on 12/23/2024 1:29 PM Final report signed by Musa Dooley MD on 12/23/2024 2:03 PM Mariajose Medel RAZA IM CT PROCEDURES Final Result documented in this encounter Visit Diagnoses Diagnosis Hypercalcemia Hyperparathyroidism, unspecified ([facility]) Hyperparathyroidism, unspecified documented in this encounter Administered Medications Inactive Administered Medications - up to 3 most recent administrations Medication Order MAR Action Action Date Dose Rate Site iohexol (OMNIPaque) 350 MG/ML injection 60 mL 60 mL, Intravenous, Once in imaging, 1 dose, Starting on Fri12/22/24 at 1518, Until Fri12/22/24 at 1542, Routine, Imaging Protocol Orders Given 12/22/2024 3:42 PM EDT 60 mL documented in this encounter Additional Health Concerns Assessment Noted Time A fall risk assessment has been complete d for the patient 11/07/2022 9:24 AM EDT A Body Mass Index follow-up plan has been documented for the patient 11/07/2022 10:43 AM EDT documented as of this encounter Care Teams Pediatric Psychologist Relationship Specialty Start Date End Date Staci Bruce MD [address] [address] PCP - General 10/06/20 documented as of this encounter
[2025-02-16 12:23] LABS: Microscopic, Urine URINE MICROSCOPIC (MICROSCOPIC)
[2025-02-16 13:00] LABS: Chloride 108 mmol/L (98-107)
[2025-02-16 13:01] LABS: Albumin Level 4.1 g/dl (3.5-5.0); Potassium 5.4 mmoL/L (3.5-5.1); Sodium 140 mmol/L (136-145)
[2025-02-16 13:03] LABS: Blood Urea Nitrogen 31 mg/dl (9-20); Creatinine,Serum 1.50 mg/dl (0.66-1.25); Estimated Glomerular Filt Rate 44 ml/min (>60); GFR (African American) 54 ML/MIN (>60)
[2025-02-16 13:04] LABS: Alanine Aminotransferase 12 U/L (12-78); Albumin/Globulin Ratio 1.9 (1.1-1.8); Alkaline Phosphatase 65 U/L (38-126); Anion Gap 15.4 mEq/L (5-15); Aspartate Amino Transferase 23 U/L (17-59); Bilirubin,Total 0.7 mg/dl (0.2-1.3); Calcium 10.4 mg/dl (8.4-10.2); Carbon Dioxide 22 mmol/L (22.0-30.0); Globulin 2.2 g/dL (1.3-3.2); Glucose 83 mg/dl (74-100); Total Protein,Serum 6.3 g/dl (6.3-8.2)
[2025-02-16 13:51] LABS: Hepatitis C Ab Qual. W/ RFX NEGATIVE (Negative)
[2025-02-16 14:21] LABS: Hemoglobin A1C 6.7 % (4.0-6.0)
[2025-02-16 14:56] LABS: 25-OH Vitamin D, Total 40.3 ng/mL (30-100)
[2025-02-16 21:10] LABS: Bilirubin,Urine Negative (Negative); Color,Urine YELLOW (Yellow); Glucose,Urine (UA) Negative (Negative); Ketones,Urine Negative (Negative); Leukocyte Esterase,Urine Negative (Negative); PH,Urine 5.5 (5.0-8.5); Protein,Urine Negative (Negative); Specific Gravity, Urine 1.010 (1.005-1.030); Urobilinogen,Urine 0.2 EU/dl (0.2)
[2025-02-16 21:48] LABS: Bacteria,Urine Trace /lpf; Mucus,Urine Trace /lpf; RBC,Urine Occasional #/hpf (0-3); Squamous Epithelial Cell,Urine Occasional #/hpf (0-5)
--- OUTSIDE RECORDS SUMMARY | 2025-02-21 10:28 | XMS_ITS | Clinical Summary ---
Author Organization [facility] Address [address] [place] [address] Care Team Providers Care Box Puller Name Role Phone Staci Bruce MD Primary Care Provider [phone] Allergies No known active allergies Medications insulin [...] blood pressure 08/20/2014 Peripheral vascular disease 08/20/2014 Encounters Date Type Department Care Team Description 12/22/2024 3:12 PM EDT - 12/22/2024 11:59 PM EDT Hospital Encounter [facility] [address] [place] [address] Hypercalcemia; Hyperparathyroidism, unspecified (CMS/HCC) Discharge Disposition: Home or Self Care 12/22/2024 Travel from Last 3 Months Social History Tobacco Use Types Packs/Day Years Used Date Smoking Tobacco: Former Cigarettes 1 16 1 [id number] Smokeless Tobacco: Never Alcohol Use Standard Drinks/Week [...] Weight 86.1 kg (189 lb 13.1 oz) 11/07/2022 9:23 AM EDT Height 167.6 cm (5' 6 ) 11/07/2022 9:23 AM EDT Body Mass Index 30.64 11/07/2022 9:23 AM EDT Plan of Treatment Health Maintenance Due Date Last Done Comments [facility]-Medicare Annual Wellness (AWV) 1935 [facility]-/Child/Adol SDOH Screenings 1935 [facility]-CPOUC-02 Vaccine (#1) 1942 Diabetes: Dental Exam 1947 [facility]- SDOH Screenings 1955 [facility]-Adult SDOH Screenings 1955 [facility]-DTaP,Tdap,and Td Vaccines (1 - Tdap) 1956 [facility]-Pneumococcal Vaccine: 50+ Years (1 of 2 - PCV) 1956 [facility]-Zoster Vaccines (1 of 2) 1956 [facility]-RSV Vaccine: 60+ Years or (1 - 1-dose 75+ series) 2012 [facility]-Diabetes: Hemoglobin A1C 05/07/2023 11/07/2022, 10/10/2021, 08/21/2020, Additional history exists [facility]-Depression Screening 11/08/2023 11/07/2022 [facility]-Influenza Vaccine (#1) 2025 [facility]-Obesity Intervention Completed 023, 11/07/2022, 11/07/2022, [...] 3:50 PM EDT Hypercalcemia Hyperparathyroidism, unspecified (CMS/HCC) HEMOGLOBIN A1C Routine 11/07/2022 9:50 AM EDT Type 2 diabetes mellitus with diabetic polyneuropathy, with long-term current use of insulin (CMS/HCC) Annual physical exam from Last 3 Months or Most Recently Relevant to Health Maintenance Results * CT Soft Tissue Neck w [...] narrowing. Probable severe neural foraminal narrowing right C4-S4hdlcf. No bony destructive lesion is present. Thoracic [...] MD on 12/23/2024 2:03 PM Mariajose Medel [facility] IM CT PROCEDURES Final Result * (ABNORMAL) Hemoglobin A1c (11/07/2022 9:50 AM EDT) Hemoglobin A1c 9.2(H) <5.7 % 11/07/2022 2:34 PM EDT [facility] Blood Venous blood specimen / Unknown [...] Adults <6.0% Children and Adolescents <7.5% Source: [place] [employer]. Standards of medical care in diabetes,2017. Diabetes Care.2017:40 (suppl 1):S1-S135. HbA1c assay performed by an ion-exchange chromatography method that is certified traceable to the DCCT. us Angelina Collins MIXED SIGNAL DESIGN ENGINEER LAB BLOOD ORDERABLES Final Result [facility] [address] [place] [phone] from Last 3 Months or Most Recently Relevant to Health Maintenance Insurance MEDICARE [facility] Care Teams Box Puller Relationship Specialty Start Date End Date Staci Bruce MD [address] [place] [address] PCP - General 10/06/20
--- OUTSIDE RECORDS SUMMARY | 2025-02-21 10:28 | XMS_ITS | Clinical Summary ---
[facility] Address [address] [place] [address] Care Team Providers Care Miller Head Wet Process Name Role Phone Provider, No Known Primary Care Provider [phone] Social History Tobacco Use Types Packs/Day Years Used Date Smoking Tobacco: Never Assessed Abuse Screen Answer Date Recorded Unsafe at Home or Work/School Not on file Feels Threatened by Someone? Not on file 03/2023 Does Anyone Keep You from Co ntacting Others or Doint Things Outside the Home? Not on file 03/05/2023 Physical Sign of Abuse Present Not on file 1 Housing Stability Answer Date Recorded Current Living Arrangements Not on file 02/23 Potentially Unsafe Housing Conditions Not on jewell e 03/05/2023 Family and Community Support Answer Jose Alejandro e Recorded Help with Day-to-Day Activities Not on file 03/05/2023 Lonely or Isolated Not on file 03/05/2023 Employment Answer Date Recorded Do you want help finding or keeping work or a tila b? Not on file 03/05/2023 Disabilities Answer Date Recorded Concentrating, Remembering, or Making Decisions Difficulty Not on file 03/05/2023 Doing Errands Independently Difficulty Not on fi le 03/05/2023 Education Answer Date Recorded Help with school or training? Not on file Preferred Language Not on file 03/05/2023 Sex and Gender Information Value Date Recorded Sex Assigned at Not on file Legal Sex Male 2:20 PM EST Gender Identity Not on file Sexual Orientation Not on file Plan of Treatment Health Maintenance Due Date Last Done Comments ANNUAL PHYSICAL 1935 TDAP/TD VACCINES (1 - Tdap) 1956 Pneumococcal Vaccine 50+ (1 of 1 - PCV) 1987 ZOSTER VACCINE (1 of 2) 1987 RSV Vaccine - Adults (1 - 1- dose 75+ series) 2012 INFLUENZA VACCINE 12/24/2024 COVID-19 Vaccine (1 - 2023-2 5 season) 2025 HEMOGLOBIN A1C Discontinued 04/01/2019, 02/24, 12/18/2016, Additional history exists Procedures Procedure Name Priority Date/Time Associated Diagnosis Comments HEMOGLOBIN A1C Routine 04/01/2019 11:28 AM EST Hypercalcemia Hyperparathyroidism, unspecified Diabetes mellitus without complication Hyperlipidemia, unspecified hyperlipidemia type from Last 3 Months or Most Recently Relevant to Health Maintenance Results * (ABNORMAL) Hemoglobin A1c (04/01/2019 11:28 AM EST) Hemoglobin A1C 6.80(H) 4.80 - 5.60 % 04/01/2019 6:19 PM EST LABORATORY Blood Venipuncture / Unknown 04/01/2019 11:28 AM EST 04/01/2019 11:28 AM EST Narrative LABORATORY - 04/01/2019 6:19 PM EST Hemoglobin A1C Ranges: Increased Risk for Diabetes 5.7% to 6.4% Diabetes >= 6.5% Diabetic Goal < 7.0% Gustavo Turner MD LAB BLOOD ORDERABLES Final R esult LABORATORY
[address] [place] [address], from Last 3 Months or Most Recently Relevant to Health Maintenance Insurance MEDICARE A & B Member Subscriber Plan / Payer (Ef fective 2002-Present) Name:Lyle Alcantar Jr. Member ID:[id number] Relation to Subscriber:Self Name:Lyle Alcantar Jr. Subscriber ID:[id number] Payer ID:[id number] Group ID:Not on file Type:Not on file Address: [facility] [id number] [place] [id number] Care Teams Miller Head Wet Process Relationship Specialty Start Date End Date Provider, [place] [address] PCP - General 04/24/16
--- OUTSIDE RECORDS SUMMARY | 2025-02-21 10:28 | XMS_ITS | Clinical Summary ---
Author Organization [facility] Address [address] [place] [address] Care Team Providers Care Bilingual Recruiter Name Role Phone Unavailable Primary Care Provider [...] therelease of HIV test results or diagnoses. [id number] Social History Tobacco Use Types Packs/Day Years Used Date Smoking Tobacco: Never Assessed Sex and Gender Information Value Date Recorded Sex Assigned at Not on file Legal Sex Male 4:01 PM EDT Gender Identity Not on file Sexual Orientation Not on file Plan of Treatment Not on file Insurance [place] [id number] MEDICARE A AND B Member Subscriber Plan / Payer (Ef fective 2002-Present) Name:Lyle Alcantar Relation to Subscriber:Self Name:Lyle Alcantar Payer ID:[id number] Group ID:Not on file Type:Medicare Address: [address] MEDICARE SUPPLEMENT Member Subscriber Plan / Payer (Ef fective 2016-Present) Name:Lyle Alcantar Relation to Subscriber:Self Name:Lyle Alcantar Payer ID:[id number] (NAIC) Group ID:[id number] Type:Not on file Address: [address] [place] [id number]
== END 2025-02-16 23:59 ==
LOC: LAB.DROPOF 02-21 10:25
PROVIDERS: PCP Nurse Practitioner Family; Visit Provider Nurse Practitioner Family
DX: D35.1 Benign neoplasm of parathyroid gland (principal); R53.83 Other fatigue; E21.3 Hyperparathyroidism, unspecified; E11.21 Type 2 diabetes mellitus with diabetic nephropathy; Z79.4 Long term (current) use of insulin; I10 Essential (primary) hypertension; Z11.4 Encounter for screening for human immunodeficiency virus [HIV]; Z11.59 Encounter for screening for other viral diseases; Z13.21 Encounter for screening for nutritional disorder; R41.3 Other amnesia
CPT/HCPCS: 80053; 81001; 82043; 82306; 82570; 83036; 84156; 86803; 87086; 87389

== ENCOUNTER 2025-05-23 09:03 | Outpatient (CLI) | payer MEDICARE, BC, SELFPAY ==
[2025-05-23 13:14] LABS: Microscopic, Urine URINE MICROSCOPIC (MICROSCOPIC)
[2025-05-23 13:29] LABS: Bilirubin,Urine Negative (Negative); Color,Urine YELLOW (Yellow); Glucose,Urine (UA) Negative (Negative); Ketones,Urine Negative (Negative); Leukocyte Esterase,Urine Negative (Negative); PH,Urine 5.5 (5.0-8.5); Protein,Urine Negative (Negative); Specific Gravity, Urine 1.010 (1.005-1.030); Urobilinogen,Urine 0.2 EU/dl (0.2)
[2025-05-23 13:43] LABS: Hemoglobin A1C 6.5 % (4.0-6.0)
--- OUTSIDE RECORDS SUMMARY | 2025-05-23 13:49 | XMS_ITS | Clinical Summary ---
Author Organization [facility] Address [address] [place] [address] Care Team Providers Care Meat Boner And Slicer Name Role Phone Provider, No Known Primary Care Provider [phone] Social History Tobacco Use Types Packs/Day Years [...] - 5.60 % 04/01/2019 6:19 PM EST [facility] Blood Venipuncture / Unknown 04/01/2019 11:28 AM EST 04/01/2019 11:28 AM EST Narrative [facility] - 04/01/2019 6:19 PM EST Hemoglobin A1C Ranges: Increased Risk for Diabetes 5.7% to 6.4% Diabetes >= 6.5% Diabetic Goal < 7.0% Gustavo Turner MD LAB BLOOD ORDERABLES Final R esult [facility]
[address] [place] [address], from Last 3 Months or Most Recently Relevant to Health Maintenance Insurance MEDICARE A & B Member Subscriber Plan / Payer (Ef fective 2002-Present) Name:Lyle Alcantar Jr. Member ID:[id number] Relation to Subscriber:Self Name:Lyle Alcantar Jr. Subscriber ID:[id number] Payer ID:[id number] Group ID:Not on file Type:Not on file Address: [facility] [address] [place] [id number] Care Teams Meat Boner And Slicer Relationship Specialty Start Date End Date [place], [place] [address] PCP - General 04/24/16
--- OUTSIDE RECORDS SUMMARY | 2025-05-23 13:49 | XMS_ITS | Clinical Summary ---
Author Organization Healthcare Address [address] [place] [address] Care Team Providers Care Engineering Consultant Name Role Phone Staci Bruce MD Primary Care Provider [phone] Allergies No known active allergies Medications insulin [...] Former Cigarettes 1 16 1 [phone] - 1977 Smokeless Tobacco: Never Alcohol Use [...] 1 AM EDT Oxygen Saturation 97% 11/07/2022 9: 23 AM EDT Inhaled Oxygen Concentration - - Weight 86.1 kg (189 lb 13.1 oz) 11/07/2022 9:23 AM EDT Height 167.6 cm (5' 6 ) 11/07/2022 9:23 AM EDT Body Mass Index 30.64 11/07/2022 9:23 AM EDT Plan of Treatment Health Maintenance Due Date Last Done Comments [facility]-Medicare Annual Wellness (AWV) 1935 [facility]-/Child/Adol SDOH Screenings 1935 [id number] Vaccine (#1) 1935 Diabetes: Dental Exam 1945 [facility]- SDOH Screenings [...] 11/07/2022, 11/07/2022, Additional history exists HPV Vaccines (No Doses Required) Completed [facility]-HIB Vaccines Aged Out No longer e [...] polyneuropathy, with long-term current use of insulin ([facility]) Annual physical exam from Last 3 Months [...] Adults <6.0% Children and Adolescents <7.5% Source: [place] [employer]. Standards of medical care in diabetes,2017. Diabetes Care.2017:40 (suppl 1):S1-S135. HbA1c assay performed by an ion-exchange chromatography method that is certified traceable to the DCCT. us Angelina Collins ASSISTANT NURSE MANAGER LAB BLOOD ORDERABLES Final Result [facility] [address] [place] [id number] from Last 3 Months or Most Recently Relevant to Health Maintenance Insurance Tristen DEBBIE WILSON [place] [id number] [place] [address] [facility] Care Teams Engineering Consultant Relationship Specialty Start Date End Date Staci Bruce MD [address] [place] [phone] PCP - General 10/06/20
--- OUTSIDE RECORDS SUMMARY | 2025-05-23 13:49 | XMS_ITS | Clinical Summary ---
Author Organization [facility] Address [address] [place] [id number] Care Team Providers Care Ramp Service Agent Name Role Phone Unavailable Primary Care Provider [...] therelease of HIV test results or diagnoses. [id number] Social History Tobacco Use Types Packs/Day Years Used Date Smoking Tobacco: Never Assessed Sex and Gender Information Value Date Recorded Sex Assigned at Not on file Legal Sex Male 4:01 PM EDT Gender Identity Not on file Sexual Orientation Not on file Plan of Treatment Not on file Insurance KARINA ANAND [id number] MEDICARE A AND B Member Subscriber Plan / Payer (Ef fective 2002-Present) Name:Lyle Alcantar Relation to Subscriber:Self Name:Lyle Alcantar Payer ID:[id number] Group ID:Not on file Type:Medicare Address: [address] MEDICARE SUPPLEMENT Member Subscriber Plan / Payer (Ef fective 2016-Present) Name:Lyle Alcantar Relation to Subscriber:Self Name:Lyle Alcantar Payer ID:[id number] (NAIC) Group ID:[id number] Type:Not on file Address: [address] [place] [id number]
[2025-05-23 13:56] LABS: Anion Gap 11.4 mEq/L (5-15); Blood Urea Nitrogen 32 mg/dl (9-20); Calcium 10.2 mg/dl (8.4-10.2); Carbon Dioxide 24 mmol/L (22.0-30.0); Chloride 108 mmol/L (98-107); Creatinine,Serum 1.60 mg/dl (0.66-1.25); Estimated Glomerular Filt Rate 41 ml/min (>60); GFR (African American) 50 ML/MIN (>60); Glucose 70 mg/dl (74-100); Potassium 5.4 mmoL/L (3.5-5.1); Sodium 138 mmol/L (136-145)
[2025-05-23 14:13] LABS: Squamous Epithelial Cell,Urine Occasional #/hpf (0-5)
== END 2025-05-23 23:59 | disposition home or self-care (01) ==
LOC: LAB.DROPOF 13:48
PROVIDERS: PCP Nurse Practitioner Family; Visit Provider Nurse Practitioner Family
DX: E11.21 Type 2 diabetes mellitus with diabetic nephropathy (principal); Z79.4 Long term (current) use of insulin; N40.0 Benign prostatic hyperplasia without lower urinary tract symptoms; I10 Essential (primary) hypertension
CPT/HCPCS: 80048; 81001; 82043; 82570; 83036; 84156